=== PATIENT | female | born 1980 | race Two or more races ===

== ENCOUNTER 2024-09-11 08:26 | Day surgery (SDC) | payer OTHER ==
[~2024-09-11] VITALS: Ht 172.7 cm; Wt 103.7 kg
[~2024-09-11 08:26] MED LIST: METO1TAB32 PO
[2024-09-11] MEDS ORDERED: propofoL 200 MG/20 ML VIAL As Ordered ONE (10:18)
[2024-09-11] MEDS ORDERED: LIDOCAINE 2% 100MG/5ML SDV (FOR ANES.) As Ordered ONE (10:18)
[2024-09-11 10:42] VITALS: TEMP 98.4
[2024-09-11 10:57] VITALS: BP 121/67; O2SAT 100
== END 2024-09-11 11:07 | disposition home or self-care (01) ==
LOC: M OPP 08:26
PROVIDERS: ATTEND Surgery
DX: Z12.11 Encounter for screening for malignant neoplasm of colon (principal); Z88.1 Allergy status to other antibiotic agents; Z79.899 Other long term (current) drug therapy; R00.0 Tachycardia, unspecified